=== PATIENT | female | born 1990 | race American Indian/Alaskan Native ===

== ENCOUNTER 2017-05-20 13:30 | Outpatient (CLI) | payer MEDICAID ==
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
== END 2017-05-20 13:31 | disposition home or self-care (01) ==
LOC: SPVIMAG 13:30
PROVIDERS: ATTEND Orthopaedic Surgery Sports Medicine
DX: M25.512 Pain in left shoulder (principal); S42.292K Other displaced fracture of upper end of left humerus, subsequent encounter for fracture with nonunion; W34.00XD Accidental discharge from unspecified firearms or gun, subsequent encounter; X58.XXXD Exposure to other specified factors, subsequent encounter